=== PATIENT | female | born 1995 | race Caucasian/White ===

== ENCOUNTER 2023-04-24 06:45 | Emergency (ER) | payer OTHER ==
[~2023-04-24] VITALS: Ht 165.1 cm; Wt 54.4 kg
[2023-04-24 07:01] VITALS: BP 124/84; PULSE 113; RESP 16; TEMP 98.1; O2SAT 100
[2023-04-24] MEDS ORDERED: LORazepam 2 MG/ML VIAL IVP ONE (07:05)
[2023-04-24] MEDS ORDERED: NACL 0.9% 1,000 ML IV ONE (07:05)
[2023-04-24 07:19] VITALS: O2SAT 98
[2023-04-24 08:15] VITALS: BP 115/75; PULSE 99; RESP 18
[2023-04-24 10:23] LABS: AMPHETAMINE, URINE POSITIVE ng/ml (NEG <=1000); BARBITURATE, URINE NEGATIVE ng/ml (NEG <=200); BENZODIAZEPINE, URINE NEGATIVE ng/mL (NEG <=200); CANNABINOID, URINE NEGATIVE ng/mL (NEG <=50); COCAINE, URINE NEGATIVE ng/mL (NEG <=300); OPIATE, URINE NEGATIVE ng/mL (NEG <=2000); PHENCYCLIDINE SCREEN,URINE NEGATIVE ng/mL (NEG <=25)
== END 2023-04-24 10:40 | disposition home or self-care (01) ==
LOC: MED 06:45
DX: F15.90 Other stimulant use, unspecified, uncomplicated (principal); Z59.00 Homelessness unspecified
CPT/HCPCS: 80305; 81002; 81025; 93005; 96361; 96374; 99284; J2060; J7030